=== PATIENT | female | born 2000 | race Caucasian/White ===

== ENCOUNTER 2018-05-05 19:44 | Emergency (ER) | payer BC ==
[~2018-05-05] VITALS: Ht 165.1 cm; Wt 72.7 kg
[2018-05-05 19:47] VITALS: BP 136/77; TEMP 97.6
[2018-05-05] MEDS ORDERED: ADDERALL10 MG PO (20:35)
[2018-05-05 23:02] VITALS: PULSE 98
== END 2018-05-05 23:02 | disposition home or self-care (01) ==
LOC: COL.ER 19:44
DX: S93.401A Sprain of unspecified ligament of right ankle, initial encounter (principal); S31.813A Puncture wound without foreign body of right buttock, initial encounter; F90.9 Attention-deficit hyperactivity disorder, unspecified type; J45.909 Unspecified asthma, uncomplicated; Z23 Encounter for immunization; Z88.0 Allergy status to penicillin; Z88.2 Allergy status to sulfonamides; W18.39XA Other fall on same level, initial encounter; X50.1XXA Overexertion from prolonged static or awkward postures, initial encounter; W26.8XXA Contact with other sharp object(s), not elsewhere classified, initial encounter; Y93.I9 Activity, other involving external motion; Y92.007 Garden or yard of unspecified non-institutional (private) residence as the place of occurrence of the external cause

== ENCOUNTER 2020-06-01 23:06 | Emergency (ER) | payer OTHER ==
[~2020-06-01] VITALS: Ht 162.6 cm; Wt 84.5 kg
[~2020-06-01 23:06] MED LIST: ADDERALL10 MG PO
[2020-06-01 23:48] LABS: COLLECTION METHOD CLEAN CATCH
[2020-06-01 23:52] LABS: BASO % 0.4 % (0.0-2.0); EOS # 0.3 (0.0-0.7); GRAN # 4.1 (1.4-6.5); GRAN % 44.8 % (42.2-75.2); HEMATOCRIT 41.8 % (37.0-47.0); HEMOGLOBIN 13.8 g/dl (12.5-16.0); LYMPH % 43.4 % (20.0-51.0); MEAN CELL VOLUME 88 fl (80.0-100.0); MEAN CORPUSCULAR HEMOGLOBIN 29 pg (27.0-31.0); MEAN CORPUSCULAR HGB CONC 33 g/dl (33.0-37.0); MEAN PLATELET VOLUME 9.6 fl (7.4-10.4); MONO # 0.8 (0.1-0.6); MONO % 8.2 % (1.7-9.3); PLATELET COUNT 343 K/mm3 (130-400); RED BLOOD COUNT 4.74 M/mm3 (4.10-5.30); REDCELL DISTRIBUTION WIDTH-CV 12.5 % (11.5-14.5)
[2020-06-01 23:55] LABS: PH 7 (5-8); SQUAMOUS EPITHELIAL 0-2 /hpf; URINE APPEARANCE Clear; URINE BACTERIA None Seen /hpf; URINE BILIRUBIN Negative (NEGATIVE); URINE BLOOD Negative (NEGATIVE); URINE COLOR Straw; URINE GLUCOSE Negative (NEGATIVE); URINE KETONE Negative (NEGATIVE); URINE LEUKOCYTE ESTERASE Negative (NEGATIVE); URINE NITRATE Negative (NEGATIVE); URINE PROTEIN(semi-quant) Negative (NEGATIVE); URINE RBC 0-2 /hpf; URINE UROBILINOGEN Negative (NEGATIVE)
[2020-06-02 00:05] LABS: ALANINE AMINOTRANSFERASE 18 U/L (4-34); ALBUMIN 4.8 gm/dL (3.5-5.0); ALKALINE PHOSPHATASE 89 U/L (50-136); ANION GAP 11 mmol/L (7-16); AST,SGOT 26 U/L (15-37); BILIRUBIN,TOTAL 0.7 mg/dL (0.0-1.0); BLOOD UREA NITROGEN 11 mg/dL (7-17); C-REACTIVE PROTEIN < 0.5 mg/dL (0.0-0.9); CALCIUM 9.7 mg/dL (8.4-10.2); CARBON DIOXIDE 26 mmol/L (22-30); CHLORIDE 103 mmol/L (98-107); CREATININE, serum 0.75 (0.52-1.25); GLUCOSE 83 mg/dL (74-106); POTASSIUM 3.7 mmol/L (3.4-5.0); SODIUM 140 mmol/L (137-145); TOTAL PROTEIN 8.1 gm/dL (6.4-8.2)
[2020-06-02 01:15] VITALS: BP 127/64; PULSE 72; TEMP 97.8
== END 2020-06-02 01:23 | disposition home or self-care (01) ==
LOC: COL.ER 23:06
PROVIDERS: Physician Assistant
DX: R10.31 Right lower quadrant pain (principal); Z87.42 Personal history of other diseases of the female genital tract; Z88.0 Allergy status to penicillin; Z88.2 Allergy status to sulfonamides; Z88.1 Allergy status to other antibiotic agents
CPT/HCPCS: J1170; J2405; J7030; Q9967

== ENCOUNTER 2021-10-19 14:34 | Outpatient (CLI) | payer OTHER, MEDICAID ==
[~2021-10-19] VITALS: Ht 162.6 cm; Wt 85.5 kg
--- NOTE | 2021-10-19 14:40 | NUR ---
PT AMBULATORY ONTO UNIT. PT COMPLAININING OF LLQ PAIN. PT DENIES VAGINAL BLEEDING, CONTRACTIONS, LEAKING OF FLUID, OR DECREASED MOVEMENT. PT VITAL SIGNS STABLE. FHR DOPPLED 130-140S. PT ORIENTED TO ROOM. PLAN OF CARE DISCUSSED. PT VERBALIZES UNDERSTANDING
[2021-10-19 14:45] VITALS: BP 134/81; PULSE 96; TEMP 97.7
[2021-10-19] MEDS ORDERED: PRENATAL TABLET PO (14:56)
[2021-10-19 15:15] VITALS: BP 120/62; PULSE 80
[2021-10-19 15:24] LABS: COLLECTION METHOD CLEAN CATCH
[2021-10-19 15:29] LABS: PH 7 (5-8); SQUAMOUS EPITHELIAL 0-2 /hpf (0-10); URINE APPEARANCE Clear (CLEAR/HAZY); URINE BACTERIA None Seen /hpf (NONE SEEN); URINE BILIRUBIN Negative (NEGATIVE); URINE BLOOD Negative (NEGATIVE); URINE COLOR Straw (YELLOW); URINE GLUCOSE Negative (NEGATIVE); URINE KETONE Negative (NEGATIVE); URINE LEUKOCYTE ESTERASE Negative (NEGATIVE); URINE NITRATE Negative (NEGATIVE); URINE PROTEIN(semi-quant) Negative (NEGATIVE); URINE RBC 0-2 /hpf (0-2); URINE UROBILINOGEN Negative (NEGATIVE); URINE WBC 0-2 /hpf (0-2)
== END 2021-10-19 16:55 | disposition home or self-care (01) ==
LOC: LDRO 14:34
PROVIDERS: Student in an Organized Health Care Education/Training Program
DX: O26.892 Other specified pregnancy related conditions, second trimester (principal); R10.32 Left lower quadrant pain; Z3A.20 20 weeks gestation of pregnancy

== ENCOUNTER 2021-12-17 16:56 | Outpatient (CLI) | payer OTHER, MEDICAID ==
[~2021-12-17] VITALS: Ht 162.6 cm; Wt 94.8 kg
[~2021-12-17 16:56] MED LIST changes: +PRENATAL TABLET PO
--- NOTE | 2021-12-17 17:05 | NUR ---
PT AMBULATORY TO UNIT PER RECOMMENDATION FOR ELEVATED BP ON HOME MACHINE. PT REPORTS POSITIVE MOVEMENTS, DENIES CONTRACTIONS AND DENIES LOF. PT STATES SHE HAS BEEN "VERY STRESSED AND ANXIOUS" THIS WEEK DUE TO EVENTS THIS PAST WEEKEND. PLACED ON EFM/TOCO, CATEGORY 1 TRACING WITH NO CONTRACTIONS AT THIS TIME. WILL NOTIFY LAB OF PATIENTS ARRIVAL. UA COLLECTED UPON ADMISSION.
[2021-12-17] MEDS ORDERED: TRANDATE 100MG100 MG PO (17:22)
[2021-12-17 17:30] VITALS: BP 135/77; PULSE 129; TEMP 97.9
[2021-12-17 18:00] VITALS: BP 136/85; PULSE 101
[2021-12-17 18:05] LABS: COLLECTION METHOD CLEAN CATCH
[2021-12-17 18:15] LABS: BASO % 0.2 % (0.0-2.0); EOS # 0.1 K/mm3 (0.0-0.7); GRAN # 7.1 K/mm3 (1.4-6.5); GRAN % 67.3 % (42.2-75.2); LYMPH # 2.3 K/mm3 (1.2-3.4); LYMPH % 21.4 % (20.0-51.0); MEAN CELL VOLUME 88 fl (80.0-100.0); MEAN CORPUSCULAR HGB CONC 33 g/dl (33.0-37.0); MEAN PLATELET VOLUME 9.8 fl (7.4-10.4); MONO # 0.9 K/mm3 (0.1-0.6); PLATELET COUNT 316 K/mm3 (130-400); REDCELL DISTRIBUTION WIDTH-CV 12.8 % (11.5-14.5)
[2021-12-17 18:15] LABS: PH 7 (5-8); SQUAMOUS EPITHELIAL 0-2 /hpf (0-10); URINE APPEARANCE Clear (CLEAR/HAZY); URINE BACTERIA Rare /hpf (NONE SEEN); URINE BILIRUBIN Negative (NEGATIVE); URINE BLOOD Negative (NEGATIVE); URINE COLOR Straw (YELLOW); URINE GLUCOSE Negative (NEGATIVE); URINE KETONE Negative (NEGATIVE); URINE LEUKOCYTE ESTERASE Negative (NEGATIVE); URINE NITRATE Negative (NEGATIVE); URINE PROTEIN(semi-quant) Negative (NEGATIVE); URINE RBC None Seen /hpf (0-2); URINE UROBILINOGEN Negative (NEGATIVE); URINE WBC 0-2 /hpf (0-2)
[2021-12-17 18:17] LABS: HEMOGLOBIN 9.7 g/dl (12.5-16.0); MEAN CORPUSCULAR HEMOGLOBIN 29 pg (27-31)
[2021-12-17 18:30] VITALS: BP 132/80; PULSE 99
[2021-12-17 18:31] LABS: ALBUMIN 2.9 gm/dL (3.5-5.0); BILIRUBIN,TOTAL 0.6 mg/dL (0.2-1.2); CALCIUM 8.6 mg/dL (8.4-10.2); CREATININE, serum 0.69 mg/dL (0.57-1.11); POTASSIUM 3.4 mmol/L (3.5-4.5); TOTAL PROTEIN 6.3 gm/dL (6.2-8.1)
[2021-12-17 19:00] VITALS: BP 136/78; PULSE 96
--- NOTE | 2021-12-17 19:00 | NUR ---
Discharge instructions reviewed with patient and spouse. Return precautions reviewed, pt verbalized understanding. Pt seen ambulating off unit with belongings.
== END 2021-12-17 19:00 | disposition home or self-care (01) ==
LOC: LDRO 16:56
PROVIDERS: Student in an Organized Health Care Education/Training Program
DX: O16.3 Unspecified maternal hypertension, third trimester (principal); Z3A.29 29 weeks gestation of pregnancy

== ENCOUNTER → 2021-12-20 | Outpatient (CLI) | payer OTHER, MEDICAID ==
[~2021-12-20] MED LIST changes: +TRANDATE 100MG100 MG PO
== END ==
LOC: DIA.ED 12-17 16:54
DX: O24.419 Gestational diabetes mellitus in pregnancy, unspecified control (principal)
CPT/HCPCS: G0108

== ENCOUNTER 2022-02-11 05:41 | Inpatient (IN) | payer MEDICAID ==
[2022-02-11] VITALS (17 sets, daily range): BP systolic 115–154; BP diastolic 60–82; PULSE 58–89; TEMP 97.5–98.4
[~2022-02-11] VITALS: Ht 160 cm; Wt 98.6 kg
[2022-02-11 06:30] LABS: BASO % 0.3 % (0.0-2.0); EOS # 0.1 K/mm3 (0.0-0.7); EOS % 1.5 % (0.0-4.0); GRAN # 4.3 K/mm3 (1.4-6.5); GRAN % 57.2 % (42.2-75.2); HEMOGLOBIN 10.8 g/dl (12.5-16.0); LYMPH # 2.3 K/mm3 (1.2-3.4); LYMPH % 30.9 % (20.0-51.0); MEAN CELL VOLUME 86 fl (80.0-100.0); MEAN CORPUSCULAR HEMOGLOBIN 28 pg (27-31); MEAN CORPUSCULAR HGB CONC 33 g/dl (33.0-37.0); MONO # 0.7 K/mm3 (0.1-0.6); MONO % 9.2 % (1.7-9.3); PLATELET COUNT 299 K/mm3 (130-400); RED BLOOD COUNT 3.86 M/mm3 (4.10-5.30); REDCELL DISTRIBUTION WIDTH-CV 15.9 % (11.5-14.5)
[2022-02-11] MEDS ORDERED: FERROUS SU325 MG/TAB PO (07:04)
[2022-02-11] MEDS ORDERED: UNISOM25 MG (07:05)
[2022-02-11] MEDS ORDERED: ZOLOFT 25MG25 MG PO (07:06)
[2022-02-11] MEDS ORDERED: PROAIR HFA0.09 MG/AC IH (07:08)
--- NOTE | 2022-02-11 09:15 | NUR ---
30 MIN PACU RECOVERY COMPLETED. BLEEDING SCANT. UTERUS D1 AND FIRM. RN HAD JAYE, UNIT DIRECTORY, DOUBLE CHECK FUNDUS/BLEEDING AND VERIFIED UTERUS WAS FIRM AND SCANT BLEEDING NOTED. PATIENT TRANSFERRED VIA BED TO NURSERY TO HOLD WHO IS IN NICU DUE TO CLEFT PALATE. PLACED SKIN TO SKIN ON MOTHER'S CHEST. MOTHER DENIES PAIN OR OTHER COMPLAINTS AT THIS TIME. FOB GIVEN EDUCATION PACKET AND SHOWN CERTIFICATE. RN EXPLAINED THIS WILL NEED COMPLETED BEFORE MOM IS DISCHARGED. UNDERSTANDING VERBALIZED. AND PATIENTS MOTHER AT BEDSIDE IN NURSERY.
--- NOTE | 2022-02-11 13:04 | NUR ---
PATIENT PROVIDED HOSPITAL BREASTPUMP. WRITTEN AND VERBAL EDUCATION GIVEN ON USE AND ESTABLISHING MILK SUPPLY. PATIENT PUMPING NOW. PATIENT TOLERATING ORAL INTAKE WELL. BLEEDING WNL. PATIENT PROVIDED PAIN MEDICATION AT THIS TIME. AT BEDSIDE.
--- NOTE | 2022-02-11 14:03 | NUR ---
PT ASSISTED UP TO BATHROOM. MCELROY REMOVED. PERICARE PROVIDED, MESH PANTIES, PAD PROVIDED. PATIENTS OWN GOWN ON. PT TOLERATED WELL.
[2022-02-12 01:40] VITALS: BP 133/70; PULSE 67; TEMP 97.6
[2022-02-12 08:00] VITALS: BP 131/82; PULSE 74; TEMP 97.7
--- NOTE | 2022-02-12 10:55 | NUR ---
Initial visit; Parents thanked Code Enforcement Supervisor for offering Congratulations for the of their daughter and offered assurance that she is being well cared for at [facility] where she was transported for cleft palate and other issues. Code Enforcement Supervisor offered to keep their daughter in her prayers. They thanked Code Enforcement Supervisor for visit.
[2022-02-12 17:00] VITALS: BP 132/79; PULSE 65; TEMP 97.8
--- NOTE | 2022-02-12 18:30 | NUR ---
Report recieved. Sitting up in bed at this time. Visitors at bedside. Requested Percocet; administered per physician's order. Updated whiteboard and reviewed POC. Pt reports she "just finished pumping." Patient states that her significant other attempted to get her "pain medicine from the pharmacy in [place] but they did not have anything for me." Pt then asked, "how do I get my medicine tomorrow since the pharmacy is closed." Patient states she uses [facility] in [place] and is unsure why her medication was sent to [place]. Assured patient that we would speak with the physician prior to discharge and make sure her pain is managed. Reports that she plans to drive to see her infant tomorrow and is concerned she will be in pain.
[2022-02-12 20:30] VITALS: BP 133/67; PULSE 72; TEMP 97.9
--- NOTE | 2022-02-12 22:30 | NUR ---
Breastpump is not functioning correctly. Assisted at this time. Questions invited and answered. Encouraged to pump 8-12 times in a 24 hour period. Encouraged to pump 15 minutes on each side with each pump session.
--- NOTE | 2022-02-12 23:30 | NUR ---
Going to attempt to sleep at this time. Reports having difficulty sleeping. Declined medication to assist with falling asleep. Lights dimmed at this time.
[2022-02-13 08:00] VITALS: BP 128/82; PULSE 78; TEMP 97.6
[2022-02-13] MEDS ORDERED: TRANDATE 100MG100 MG PO (09:58)
[2022-02-13] MEDS ORDERED: PERCOCET 325 MG1 TA2 PO (09:59)
[2022-02-13] MEDS ORDERED: IBU800 M1 PO (09:59)
== END 2022-02-13 10:30 | disposition home or self-care (01) | DRG 788 ==
LOC: OB 05:41
PROVIDERS: ADMIT Student in an Organized Health Care Education/Training Program
PROC: 10D00Z1 Extraction of Products of Conception, Low, Open Approach (ICD-10-PCS; principal; 2022-02-11)
DX: O13.4 Gestational [pregnancy-induced] hypertension without significant proteinuria, complicating childbirth (principal); O26.893 Other specified pregnancy related conditions, third trimester; O99.344 Other mental disorders complicating childbirth; F41.9 Anxiety disorder, unspecified; J45.909 Unspecified asthma, uncomplicated; O99.52 Diseases of the respiratory system complicating childbirth; O99.02 Anemia complicating childbirth; D64.9 Anemia, unspecified; O24.420 Gestational diabetes mellitus in childbirth, diet controlled; F90.9 Attention-deficit hyperactivity disorder, unspecified type; Z67.91 Unspecified blood type, Rh negative; Z3A.37 37 weeks gestation of pregnancy; Z37.0 Single live birth; Z90.89 Acquired absence of other organs; Z88.1 Allergy status to other antibiotic agents; Z88.0 Allergy status to penicillin; Z88.2 Allergy status to sulfonamides; Z88.8 Allergy status to other drugs, medicaments and biological substances
CPT/HCPCS: J0690; J1100; J1885; J2405; J2590; J2765; J7120

== ENCOUNTER 2022-12-30 05:18 | Inpatient (IN) | payer MEDICAID ==
[2022-12-30] VITALS (21 sets, daily range): BP systolic 107–140; BP diastolic 56–87; PULSE 61–105; TEMP 97.6–98.8
[~2022-12-30] VITALS: Ht 162.6 cm; Wt 102.3 kg
[~2022-12-30 05:18] MED LIST changes: +FERROUS SU325 MG/TAB PO; +IBU800 M1 PO; +PERCOCET 325 MG1 TA2 PO; +PROAIR HFA0.09 MG/AC IH; +UNISOM25 MG; +ZOLOFT 25MG25 MG PO
--- NOTE | 2022-12-30 05:25 | NUR ---
Ambulatory to unit for scheduled repeat C/S, accompanied by significant other.
[2022-12-30 06:13] LABS: BASO % 0.2 % (0.0-2.0); EOS # 0.1 K/mm3 (0.0-0.7); EOS % 1.5 % (0.0-4.0); GRAN # 5.3 K/mm3 (1.4-6.5); GRAN % 61.9 % (42.2-75.2); HEMOGLOBIN 10.4 g/dl (12.5-16.0); LYMPH # 2.4 K/mm3 (1.2-3.4); LYMPH % 27.6 % (20.0-51.0); MEAN CELL VOLUME 81 fl (80.0-100.0); MEAN CORPUSCULAR HEMOGLOBIN 27 pg (27-31); MEAN CORPUSCULAR HGB CONC 33 g/dl (33.0-37.0); MONO # 0.7 K/mm3 (0.1-0.6); MONO % 8.2 % (1.7-9.3); PLATELET COUNT 291 K/mm3 (130-400); RED BLOOD COUNT 3.92 M/mm3 (4.10-5.30); REDCELL DISTRIBUTION WIDTH-CV 14.6 % (11.5-14.5)
[2022-12-30 06:15] LABS: HEMATOCRIT 31.6 % (37.0-47.0)
--- NOTE | 2022-12-30 16:34 | NUR ---
PT MCELROY REMOVED AT 1545- SEE MCELROY REMOVAL INTERVENTION FOR MORE INFO. PT UP TO RESTROOM. PERICARE PROVIDED. INCISION BANDAGE CDI. BINDER ON. PT BACK TO BED, STEADY GAIT. EDUCATED ON 3 MEASURED VOIDS PRIOR TO D/C INT. PT EXPRESSES UNDERSTANDING, FAMILY AT BEDSIDE, NO QUESTIONS OR CONCERNS AT THIS TIME. SEE NOTES FOR INTERVENTIONS AT THIS TIME.
[2022-12-31] VITALS: BP 129/64; PULSE 79; TEMP 97.4
[2022-12-31 07:15] VITALS: BP 122/66; PULSE 75; TEMP 97.6
--- NOTE | 2022-12-31 09:17 | NUR ---
2140 PATIENT REPORTS UPPER RIGHT ABDOMINAL PAIN "FEELS LIKE IT'S BRUISED". THIS NURSE EDUCATED PATIENT ON POSITIONING AND MANUEVERS THAT ARE POSSIBLE DURING A C SECTION. THIS NURSE OFFERED HELP WITH -SPECIFICALLY LATCHING. PATIENT STATED SHE WOULD CALL THIS NURSE WHEN READY TO ATTEMPT TO BREASFEED.
--- NOTE | 2022-12-31 13:30 | NUR ---
1300 THIS NURSE ASSESSED THE PATIENTS INCISION AFTER SHOWERING AND REMOVAL OF DRESSING. NO DRAINAGE OR SIGNS OF INFECTION. STERI STRIPS IN PLACE.
--- NOTE | 2022-12-31 13:51 | NUR ---
[employer] offered congrats to patient and family in room.
[2022-12-31 16:11] VITALS: BP 123/71; PULSE 74; TEMP 97.9
[2022-12-31 20:00] VITALS: BP 131/81; PULSE 89; TEMP 98.1
[2023-01-01 08:00] VITALS: BP 127/77; PULSE 91; TEMP 97.7
[2023-01-01] MEDS ORDERED: MOTRIN 800800 MG/TAB PO (08:13)
[2023-01-01] MEDS ORDERED: PERCOCET 325 MG1 TA2 PO (08:13)
--- NOTE | 2023-01-01 09:08 | NUR ---
0800 PATIENT REQUESTED 1 OXYCODONE INSTEAD OF 2 AT THIST TIME. 1 WAS ADMINISTERED.
== END 2023-01-01 10:15 | disposition home or self-care (01) | DRG 788 ==
LOC: OB 05:18
PROVIDERS: ADMIT Student in an Organized Health Care Education/Training Program
PROC: 10D00Z1 Extraction of Products of Conception, Low, Open Approach (ICD-10-PCS; principal; 2022-12-30)
DX: O34.211 Maternal care for low transverse scar from previous cesarean delivery (principal); O99.344 Other mental disorders complicating childbirth; O13.4 Gestational [pregnancy-induced] hypertension without significant proteinuria, complicating childbirth; F41.9 Anxiety disorder, unspecified; F90.9 Attention-deficit hyperactivity disorder, unspecified type; O99.213 Obesity complicating pregnancy, third trimester; Z3A.37 37 weeks gestation of pregnancy; Z37.0 Single live birth; Z79.82 Long term (current) use of aspirin; Z88.0 Allergy status to penicillin; Z88.2 Allergy status to sulfonamides
CPT/HCPCS: J0690; J1100; J1885; J2405; J2590; J7120